=== PATIENT | male | born 1960 | race Caucasian/White ===

== ENCOUNTER 2020-04-16 09:39 | Emergency (ER) | payer MEDICARE ==
[~2020-04-16] VITALS: Ht 177.8 cm; Wt 82.0 kg
[~2020-04-16 09:39] MED LIST: CEPH-264 PO; DOXY100T PO; GLIP5TAB10 PO; METF-658 PO
--- NOTE | 2020-04-16 09:54 | PHYS DOC ---
Past Medical History Past Medical History: Diabetes-Type II, Schizophrenia Past Surgical History: Tonsillectomy Additional Past Surgical Histo: unknown Smoking Status: Current Some Day Smoker Alcohol Use: Sober Drug Use: None General Adult EDM: Chief Complaint: CONVUSION HPI: HPI: Patient is a 60 year old male arrives with a chief complaint of a convulsion. Patient is at [facility] following a admission here a couple weeks ago for cavitary pneumonia. Patient is set [facility] [place] [facility]. Patient had about 10 minutes of "seizure". Patient was awake and sitting up and talking during the whole time. Patient not have a postictal phase. Upon questioning the patient patient endorses yes to almost every question. Patient states he has had a fever he has had nausea and vomiting. Patient states he has a headache abdominal pain teeth pain feet pain and chest pain. Patient states he had shortness of breath as well. Review of Systems: Review of Systems: Constitutional: Patient states he has a subjective fever Eyes: Denies change in visual acuity. [] HENT: Denies nasal congestion or sore throat. [] Respiratory: Patient states he had a cough and shortness of breath Cardiovascular: Patient states he had chest pain GI: Patient says he abdominal pain with nausea and vomiting : Denies dysuria. [] Musculoskeletal: Patient endorses entire body pain Integument: Denies rash. [] Neurologic: Patient has had a headache but no focal weakness or sensory changes. [] Endocrine: Denies polyuria or polydipsia. [] Lymphatic: Denies swollen glands. [] Psychiatric: Patient denies suicidal ideation Heart Score: HEART Score for Chest Pain: HEART Score for Chest Pain Response (Comments) Value History Slighlty/Non-Suspicious 0 ECG Nonspecific Repolarizatio 1 Age >45 - < 65 1 Risk Factors 1 or 2 Risk Factors 1 Total 3 Risk Factors: Risk Factors: DM, Current or recent (<one month) smoker, HTN, HLP, family history of CAD, obesity. Risk Scores: Score 0 - 3: 2.5% MACE over next 6 weeks - Discharge Home Score 4 - 6: 20.3% MACE over next 6 weeks - Admit for Clinical Observation Score 7 - 10: 72.7% MACE over next 6 weeks - Early Invasive Strategies Current Medications: Current Medications Dextrose (Dextrose 50%-Water Syringe) 25 gm 1X ONCE IV Last administered on 04/16/20at 10:02; Start 04/16/20 at 10:00; Stop 04/16/20 at 10:01; Status DC Active Scripts Active Doxycycline Hyclate 100 Mg Tablet 100 Mg PO BID 5 Days Glipizide 5 Mg Tablet 1 Tab PO DAILY Metformin Hcl Er (Metformin Hcl) 500 Mg Tab.er.24h 500 Mg PO DAILYWBKFT Keflex (Cephalexin) 500 Mg Capsule 500 Mg PO QID Allergies: Allergies: Allergies Coded Allergies Type Severity Reaction Last Updated Verified diphenhydramine Allergy Intermediate 03/14/20 Yes Physical Exam: PE: Constitutional: Well developed, well nourished, no acute distress, non-toxic appearance. [] HENT: Normocephalic, atraumatic, bilateral external ears normal, oropharynx moist, no oral exudates, nose normal. [] Eyes: PERRLA, EOMI, conjunctiva normal, no discharge. [] Neck: Normal range of motion, no tenderness, supple, no stridor. [] Cardiovascular:Heart rate regular rhythm, no murmur [] Lungs & Thorax: Bilateral breath sounds clear to auscultation [] Abdomen: Bowel sounds normal, soft, no tenderness, no masses, no pulsatile masses. [] Skin: Warm, dry, no erythema, no rash. [] Back: No tenderness, no CVA tenderness. [] Extremities: No tenderness, no cyanosis, no clubbing, ROM intact, no edema. [] Neurologic: Alert and oriented X 3, normal motor function, normal sensory function, no focal deficits noted. [] Psychologic: Affect normal, judgement normal, mood normal. [] Current Patient Data: Labs: Laboratory Tests Test 04/16/20 09:53 04/16/20 09:55 04/16/20 11:03 Glucose (Fingerstick) 44 mg/dL 92 mg/dL White Blood Count 8.5 x10^3/uL Red Blood Count 4.23 x10^6/uL Hemoglobin 13.0 g/dL Hematocrit 38.3 % Mean Corpuscular Volume 91 fL Mean Corpuscular Hemoglobin 31 pg Mean Corpuscular Hemoglobin Concent 34 g/dL Red Cell Distribution Width 14.3 % Platelet Count 274 x10^3/uL Neutrophils (%) (Auto) 48 % Lymphocytes (%) (Auto) 37 % Monocytes (%) (Auto) 13 % Eosinophils (%) (Auto) 2 % Basophils (%) (Auto) 1 % Neutrophils # (Auto) 4.1 x10^3/uL Lymphocytes # (Auto) 3.2 x10^3/uL Monocytes # (Auto) 1.1 x10^3/uL Eosinophils # (Auto) 0.1 x10^3/uL Basophils # (Auto) 0.0 x10^3/uL Sodium Level 140 mmol/L Potassium Level 3.3 mmol/L Chloride Level 102 mmol/L Carbon Dioxide Level 22 mmol/L Anion Gap 16 Blood Urea Nitrogen 9 mg/dL Creatinine 0.8 mg/dL Estimated GFR (Cockcroft-Gault) 98.6 BUN/Creatinine Ratio 11 Glucose Level 48 mg/dL Calcium Level 9.4 mg/dL Total Bilirubin 0.4 mg/dL Aspartate Amino Transf (AST/SGOT) 70 U/L Alanine Aminotransferase (ALT/SGPT) 131 U/L Alkaline Phosphatase 143 U/L Creatine Kinase 23 U/L Troponin I Quantitative < 0.017 ng/mL Total Protein 8.3 g/dL Albumin 3.3 g/dL Albumin/Globulin Ratio 0.7 Current Medications Medications (Trade) Dose Ordered Sig/[place] Route PRN Reason Start Time Stop Time Status Last Admin Dose Admin Dextrose (Dextrose 50%-Water Syringe) 25 gm 1X ONCE IV 04/16/20 10:00 04/16/20 10:01 DC 04/16/20 10:02 Vital Signs: Vital Signs Date Time Temp Pulse Resp B/P (MAP) Pulse Ox O2 Delivery O2 Flow Rate FiO2 04/16/20 11:30 112 18 131/85 (100) 99 Room Air 04/16/20 10:30 102 18 123/74 (90) 97 Room Air 04/16/20 09:40 97.9 103 20 144/101 (115) 98 Room Air 97.9 EKG: EKG: EKG interpreted by me normal sinus rhythm with a rate of 90 left axis deviation, normal intervals normal axis, PVC [] Radiology/Procedures: Radiology/Procedures: [][facility] [address] [place] [address] IMAGING REPORT Signed PATIENT: RYLEE STEPHEN ACCOUNT: [id number] : 1960 LOCATION: ER AGE: 60 SEX: M EXAM STATUS: PRE ER ORD. PHYSICIAN: JESUS TSANG MD REASON: CHEST PAIN PROCEDURE: PORTABLE CHEST 1V EXAM: CHEST 1 VIEW History: Chest pain. COMPARISON: 03/29/2020. TECHNIQUE: Single portable radiograph of the chest FINDINGS: Low lung volumes and technique accentuates heart size and pulmonary vascularity. Mild bibasilar lung airspace opacities likely atelectasis or infiltrates. IMPRESSION: Patchy bibasilar lung airspace opacities likely atelectasis or infiltrates. Electronically signed by: Tommy Lynn MD (04/16/2020 10:32 AM) [id number] DICTATED and SIGNED BY: TOMMY LYNN MD DATE: 04/16/20 1032 Course & Med Decision Making: Course & Med Decision Making Patient reassessed at 11:15 AM, ate breakfast and his blood sugar is in the 90s. Patient is in no distress. Patient stable for discharge pertinent Labs and Imaging studies reviewed. (See chart for details) [] 60-year-old male presents from care facility with a convulsion. The symptoms he described not consistent with a seizure as he retain consciousness during the whole time. Patient's work-up reveals hypoglycemia which may been the cause of his symptoms. Patient's rest of his work-up is reassuring. Patient is stable in the ER. Clinically doubt acute coronary syndrome based on patient with multiple symptoms multiple organ systems not compatible with acute coronary syndrome Dragon Disclaimer: Dragthomas Disclaimer: This electronic medical record was generated, in whole or in part, using a voice recognition dictation system. Departure Departure Impression: Primary Impression: Hypoglycemia Additional Impression: Convulsion Disposition: 01 DC HOME SELF CARE/HOMELESS Condition: STABLE Referrals: NO PCP (PCP) 2-3 DAYS Patient Instructions: Hypoglycemia (Low Blood Sugar) Additional Instructions: EMERGENCY DEPARTMENT GENERAL DISCHARGE INSTRUCTIONS THANK YOU for coming to [facility] Emergency Department (ED) today and trusting us with your care. We trust that you had a positive experience in our Emergency Department. If you wish to speak to the department Management you can contact the occupational therapy department chair at . YOUR FOLLOW UP INSTRUCTIONS ARE FOLLOWS: Do you have a private doctor? If you do not have a private doctor, please ask for a resource list of physicians or clinics that may be able to assist you with follow up care. The Emergency Physician has interpreted your x-rays. The X-ray specialist will also review them. If there is a change in the findings you will be notified in 48 hours when at all possible. A lab test or lab culture may have been done, your results will be reviewed and you will be notified if you need a change in treatment. ADDITIONAL INSTRUCTIONS AND INFORMATION Your care today has been supervised by a physician who is specially trained in emergency care. Many problems require more than one evaluation for a complete diagnosis and treatment. We recommend that you schedule your follow up appointment as recommended to ensure complete treatment of your illness or injury. If you are unable to obtain follow up care and continue to have a problem, or if your condition worsens we recommend that you return to the ED. We are not able to safely determine your condition over the phone nor are we able to give sound medical advice over the phone. For these safety reasons, if you call for medical advice we will ask you to come to the ED for further evaluation If you have any questions regarding these discharge instructions please call the ED at . SAFETY INFORMATION In the interest of safety, wellness, and injury prevention; we encourage you to wear your seatbelt, if you smoke; quit smoking, and we encourage your family to use protective helmet for bicycling and other sporting events that present an increased risk for head injury. IF YOUR SYMPTOMS WORSEN OR NEW SYMPTOMS DEVELOP, OR YOU HAVE CONCERNS ABOUT YOUR CONDITION; OR IF YOUR CONDITION WORSENS WHILE YOU ARE WAITING FOR YOUR FOLLOW UP APPOINTMENT; EITHER CONTACT YOUR PRIMARY CARE DOCTOR, THE PHYSICIAN WHOSE NAME AND NUMBER YOU WERE GIVEN, OR RETURN TO THE ED IMMEDIATELY. JESUS TSANG MD Apr 16, 2020 09:54
[2020-04-16] MEDS ORDERED: DEXTROSE 50% 25 GM / 50ML DISP.SYRIN. IV ONE (10:00)
[2020-04-16 10:14] LABS: BASO % 1 % (0-3); EOS # 0.1 x10^3/uL (0.0-0.7); EOS % 2 % (0-3); HEMATOCRIT 38.3 % (39.0-53.0); LYMPH # 3.2 x10^3/uL (1.0-4.8); LYMPH % 37 % (24-48); MEAN CORPUSCULAR HEMOGLOBIN 31 pg (25-35); MEAN CORPUSCULAR HGB CONC 34 g/dL (31-37); MEAN CORPUSCULAR VOLUME 91 fL (79-100); MONO # 1.1 x10^3/uL (0.0-1.1); MONO % 13 % (0-9); NEUT # 4.1 x10^3/uL (1.8-7.7); NEUT % 48 % (31-73); PLATELET COUNT 274 x10^3/uL (140-400); RED BLOOD COUNT 4.23 x10^6/uL (4.30-5.70); RED CELL DISTRIBUTION WIDTH 14.3 % (11.5-14.5); WHITE BLOOD COUNT 8.5 x10^3/uL (4.0-11.0)
[2020-04-16 10:17] LABS: CALCIUM 9.4 mg/dL (8.5-10.1); CREATININE 0.8 mg/dL (0.7-1.3); GFR 98.6; POTASSIUM 3.3 mmol/L (3.5-5.1)
[2020-04-16 10:32] LABS: ALBUMIN 3.3 g/dL (3.4-5.0); ALBUMIN/GLOBULIN RATIO 0.7 (1.0-1.7); TOTAL BILIRUBIN 0.4 mg/dL (0.2-1.0); TOTAL PROTEIN 8.3 g/dL (6.4-8.2)
--- NOTE | 2020-04-16 10:35 | RAD ---
EXAM: CHEST 1 VIEW History: Chest pain. COMPARISON: 03/29/2020. TECHNIQUE: Single portable radiograph of the chest FINDINGS: Low lung volumes and technique accentuates heart size and pulmonary vascularity. Mild bibasilar lung airspace opacities likely atelectasis or infiltrates. IMPRESSION: Patchy bibasilar lung airspace opacities likely atelectasis or infiltrates. Electronically signed by: Tommy Lynn MD (04/16/2020 10:32 AM) [id number]
[2020-04-16 11:30] VITALS: BP 131/85
--- NOTE | 2020-04-16 14:44 | EKG ---
[facility] [address] [place] [address] Test Date: 2020-04-16 Test Time: 10:00:51 Pat Name: RYLEE STEPHEN Department: Room: Gender: M Case Finisher: : 1960 Requested By: JESUS TSANG Order Number: [id number] Reading MD: Measurements Intervals [place] Rate: 90 P: 74 FL: 124 QRS: 6 QRSD: 92 T: 62 QT: 382 QTc: 472 Interpretive Statements SINUS RHYTHM COMPLEX(ES) WITH ABERRANT INTRAVENTRICULAR CONDUCTION ABNORMAL ECG RI6.02 No previous ECG available for comparison
== END 2020-04-16 12:08 | disposition home or self-care (01) ==
LOC: ER 09:39
DX: E11.649 Type 2 diabetes mellitus with hypoglycemia without coma (principal); R56.9 Unspecified convulsions; R50.9 Fever, unspecified; R11.2 Nausea with vomiting, unspecified; R10.9 Unspecified abdominal pain; F20.9 Schizophrenia, unspecified; Z90.89 Acquired absence of other organs; Z87.891 Personal history of nicotine dependence; Z88.8 Allergy status to other drugs, medicaments and biological substances
CPT/HCPCS: 36415; 71045; 80053; 82550; 82962; 84484; 85025; 93005; 96374; 99285